=== PATIENT | female | born 1970 | race Caucasian/White ===

== ENCOUNTER 2017-12-24 05:43 | Day surgery (SDC) | payer BC, MEDICAID ==
[2017-12-24] MEDS ORDERED: FENTAnyl 50 MCG/ML VIAL (07:56)
[2017-12-24] MEDS ORDERED: MIDAZOLAM 1 MG/ML 2 ML INJ (07:56)
== END 2017-12-24 14:11 | disposition home or self-care (01) ==
LOC: GIL 05:43
DX: K29.60 Other gastritis without bleeding (principal)
CPT/HCPCS: 43239; 87081